=== PATIENT | female | born 1985 | race Caucasian/White ===

== ENCOUNTER → 2020-05-24 | Outpatient (CLI) | payer OTHER ==
[2020-05-24 09:57] LABS: ABSOLUTE BASOPHILS # (AUTO) 0.1 10^3/uL (0.0-0.2); ABSOLUTE EOSINOPHILS # (AUTO) 0.5 10^3/uL (0.0-0.6); ABSOLUTE LYMPHOCYTES (AUTO) 1.8 10^3/uL (0.5-4.7); ABSOLUTE MONOCYTES (AUTO) 0.5 10^3/uL (0.1-1.4); ABSOLUTE NEUT (AUTO) 3.8 10^3/uL (1.7-8.2); BASOPHILS % (AUTO) 1.3 % (0-2); EOSINOPHILS % (AUTO) 7.6 % (0-6); HEMATOCRIT 40.5 % (36.0-47.0); HEMOGLOBIN 13.9 g/dL (12.0-15.5); LYMPHOCYTES % (AUTO) 27.3 % (13-45); MEAN CORPUSCULAR HEMOGLOBIN 31.4 pg (27.0-33.4); MEAN CORPUSCULAR HGB CONC 34.3 g/dL (32.0-36.0); MEAN CORPUSCULAR VOLUME 92 fl (80-97); MONOCYTES % (AUTO) 6.9 % (3-13); PLATELET COUNT 225 10^3/uL (150-450); RED BLOOD COUNT 4.42 10^6/uL (3.72-5.28); RED CELL DISTRIBUTION WIDTH 12.7 % (11.5-14.0); SEGMENTED NEUTROPHILS % (AUTO) 56.9 % (42-78); TOTAL CELLS COUNTED % (AUTO) 100 %; WHITE BLOOD COUNT 6.6 10^3/uL (4.0-10.5)
[2020-05-24 10:19] LABS: ALBUMIN 4.4 g/dL (3.5-5.0); ALKALINE PHOSPHATASE 61 U/L (38-126); ANION GAP 7 (5-19); ASPARTATE AMINO TRANSFERASE 28 U/L (14-36); BILIRUBIN,DIRECT 0.1 mg/dL (0.0-0.4); BILIRUBIN,TOTAL 1.1 mg/dL (0.2-1.3); BLOOD UREA NITROGEN 14 mg/dL (7-20); CARBON DIOXIDE 27 mmol/L (22-30); CHLORIDE 104 mmol/L (98-107); CHOLESTEROL 166.79 mg/dL (0-200); GLUCOSE 97 mg/dL (75-110); POTASSIUM 4.9 mmol/L (3.6-5.0); TOTAL PROTEIN 7.2 g/dL (6.3-8.2); TRIGLYCERIDES 50 mg/dL (<150)
[2020-05-24 10:28] LABS: FREE T4 (FREE THYROXINE) 0.96 ng/dL (0.78-2.19)
[2020-05-24 10:30] LABS: DIRECT LDL 86 mg/dL (<100)
[2020-05-24 10:42] LABS: THYROID STIMULATING HORMONE 0.85 uIU/mL (0.47-4.68)
== END ==
LOC: OD 08:16
PROVIDERS: ATTEND Nurse Practitioner Psychiatric/Mental Health
DX: F90.9 Attention-deficit hyperactivity disorder, unspecified type (principal); Z79.899 Other long term (current) drug therapy
CPT/HCPCS: 36415; 80053; 80061; 84439; 84443; 85025